=== PATIENT | male | born 1990 | race Caucasian/White ===

== ENCOUNTER 2016-03-17 09:11 | Emergency (ER) | payer OTHER ==
[~2016-03-17] VITALS: Ht 190.5 cm; Wt 113.4 kg
[~2016-03-17 09:11] MED LIST: AMOXICILLIN500 M3 PO; BACTRIM DS TAB1 EACH PO; PERCOCET 5-3251 EACH PO; VICODIN 5-3001 EACH PO
[2016-03-17 09:14] VITALS: BP 146/87
--- NOTE | 2016-03-17 09:15 | ED INFLUENZA/URI COMPLAINT ---
History of Present Illness General Chief Complaint: Upper Respiratory Sx/Fever Stated Complaint: URI Source: patient, old records Exam Limitations: no limitations Vital Signs & Intake/Output Vital Signs & Intake/Output Vital Signs Date Time Temp Pulse Resp B/P Pulse O2 O2 Flow FiO2 Ox Delivery Rate 03/17 0950 96 03/17 0914 96.1 107 18 146/87 98 Room Air Allergies Coded Allergies: nut - unspecified (HIVES 03/17/16) Reconcile Medications Albuterol Sulfate (Proair Hfa) 90 MCG HFA.AER.AD 2 PUF INH Q4-6 PRN PRN shortness of breath Methylprednisolone. (Medrol) 4 MG TAB.DS.PK 1 DP PO AD reactive airway 6 on day 1 then reduce by one tablet daily until gone Triage Note: 25 Y/O MALE C/O URI SYMPTOMS SINCE 299. DENIES RECENT COUGH OR FEVERS. C/O FEELING SOB AND HAVING UPPER BACK PAIN. REPORTS GOOD APPETITE/PO INTAKE. Triage Nurses Notes Reviewed? yes Onset: Abrupt Duration: hour(s): (7), constant, waxing and waning Timing: recent history Severity: mild, moderate Severity Numbers: 5 Prior Episodes/Possible Cause: no prior episodes No Modifying Factors: none Associated Symptoms: upper back pain HPI: This is a 25-year-old male with no medical problems presents emergency room complaining of sudden onset dyspnea upon exertion and intermittent dizziness that came on at 3:00 this morning and awoke him from sleep. He states since then the symptoms have improved however states she feels mildly short of breath while at rest. No history of asthma. He does not smoke. Denies any pain with inspiration no chest pain however states that his left upper back has been bothering him since symptoms began. No hemoptysis. No abdominal pain fever or chills and no recent immobility or recent travel no leg pain or swelling. The patient's family history is significant in that his sister had a blood clot in her legs. The patient is currently using anabolic steroids for which he has been on for the past 4 months (YURIY HARO) Past History Travel History Traveled to [place] past [place] day No Medical History Any Pertinent Medical History? 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 No (YURIY HARO) Review of Systems Review of Systems Constitutional: Reports: see HPI. All Other Systems: Reviewed and Negative Comments Review of systems: See HPI, All other systems negative. Constitutional, no chills no fever, no malaise HEENT: No visual changes no sore throat no congestion, no ear pain Cardiovascular: No chest pain , no palpitation , no orthopnea no ankle swelling Skin, no jaundice no rashes, no change in skin Respiratory: dyspnea no cough no sputum no hemoptysis GI: No nausea no vomiting, no diarrhea, no bloating/constipation : No dysuria No hematuria, Muscle skeletal: No joint pain, no back pain, no neck pain, Neurologic: No numbness no headache Psych: No stress Heme/endocrine: No bruising no bleeding Immunology: No lymphadenopathy (YURIY HARO) Physical Exam Physical Exam General Appearance: well developed/nourished, alert, awake Ears, Nose, Throat: normal ENT inspection, moist mucous membrane, hearing grossly normal Comments: Well-developed well-nourished person in no acute distress HEENT: Normal EENT exam; PERRL, EOMI, HEAD is atraumatic. moist mucous membranes. Neck: Supple, no lymphadenopathy, normal range of motion Back: Nontender, no CVA tenderness. Full range of motion Cardiovascular: Regular rate and rhythms no murmurs rubs or gallops, normal JVP Respiratory: Chest nontender.There were no bony deformities, no asymmetry. No respiratory distress. Patient speaking in full complete sentences. Breath sounds clear to auscultation bilaterally: NO W/R/R Abdomen: Soft, nontender nondistended Extremity: No edema, neg homans sign, full range of motion of extremities, normal and equal pulses bilaterally, 5 out of 5 strength noted to bilateral upper and lower extremities Neuro: Alert oriented x3, motor sensory normal. There were no obvious focal neurologic abnormalities. Skin: No appreciable rash on exposed skin, skin is warm and dry. Psych: Mood and affect is normal, memory and judgment is normal. Core Measures Severe Sepsis Present: No Septic Shock Present: No (YURIY HARO) Progress Differential Diagnosis: pe, pericarditis, pleuritis, pna, bronchitis, reactive airway Plan of Care: Orders Procedure Date/time Status TROPONIN LEVEL 03/17 929 Complete D-DIMER 03/17 929 Complete COMPREHENSIVE METABOLIC PANEL 03/17 929 Complete CBC WITHOUT DIFFERENTIAL 03/17 929 Complete EKG 03/17 929 Active Laboratory Tests 03/17/16 0952: Anion Gap 12, Estimated GFR > 60, BUN/Creatinine Ratio 8.3, Glucose 97, Calcium 9.4, Total Bilirubin 1.3, AST 53, ALT 87 H, Alkaline Phosphatase 40, Troponin I < 0.01, Total Protein 7.0, Albumin 4.1, Globulin 2.9, Albumin/Globulin Ratio 1.4 , D-Dimer 464 H, CBC w Diff NO MAN DIFF REQ, RBC 6.17 H, MCV 85.6, MCH 28.0, RDW 16.1 H, MPV 7.9, Gran % 77.2 H, Lymphocytes % 13.2 L, Monocytes % 4.6, Eosinophils % 4.7, Basophils % 0.3, Absolute Granulocytes 9.4 H, Absolute Lymphocytes 1.6, Absolute Monocytes 0.6, Absolute Eosinophils 0.6, Absolute Basophils 0, PUBS MCHC 32.7 L Labs ordered breathing treatment ordered old records reviewed case was discussed with sophie 03/17/2016 10:36:10 AM discussed the patient with all of his lab results and need for CAT scan at this time. He reports no improvement in symptoms with breathing treatment On repeat evaluation discussed the patient's CAT scan results he is feeling improved he is able to around ER. States mild dyspnea only. case and results d/ w dr bernabe. We'll send patient home with albuterol inhaler and Medrol Dosepak. Patient is advised to abstain from further anabolic steroid use. I advised he return anytime sooner if symptoms worsen answered all his questions he feels comfortable plan (YURIY HARO) Diagnostic Imaging: Viewed by Me: Radiology Read. Discussed w/RAD: Radiology Read. Radiology Impression: PATIENT: KRISTYN CORDON PRESENT AGE: 25 PATIENT ACCOUNT NO: [id number] : 88 LOCATION: [facility] ORDERING PHYSICIAN: YURIY SUAREZ SERVICE DATE: 01/06/17-0936 EXAM TYPE: RAD - XRY-PORTABLE CHEST XRAY EXAMINATION: XR PORTABLE CHEST CLINICAL INFORMATION: Dyspnea. Left upper back pain. COMPARISON: None. TECHNIQUE: Portable view of the chest was obtained. FINDINGS: The lungs are well expanded. There is no focal consolidation, edema, or effusion. No pneumothorax. The cardiomediastinal silhouette is within normal limits. No acute osseous abnormality. 3 tiny radiopaque densities overlie the left axilla and periphery of the left hemithorax, likely external to the patient. IMPRESSION: No acute pulmonary findings. DICTATED BY: ANTONI MERCEDES MD DATE/TIME DICTATED:1013 [employer] SALES:ALAN DATE/TIME TRANSCRIBED:03/17/161013 CONFIDENTIAL, DO NOT COPY WITHOUT APPROPRIATE AUTHORIZATION. <Electronically signed in Other Vendor System> SIGNED BY: ANTONI MERCEDES MD 03/17/161017, PATIENT: KRISTYN CORDON PRESENT AGE: 25 PATIENT ACCOUNT NO: [id number] : 88 LOCATION: [facility] ORDERING PHYSICIAN: YURIY SUAREZ SERVICE DATE: 03/17/16 EXAM TYPE: CAT - CTA CHEST- PULMONARY EMBOLISM EXAMINATION: CT ANGIOGRAM OF THE CHEST WITH AND WITHOUT CONTRAST (CT PULMONARY ANGIOGRAM FOR PE) CLINICAL INFORMATION: Reason for Study:
Presumptive Dx: R/O PE
Signs Symptoms: DYSPNEA L UPPER BACK PAIN
COMPARISON: No pertinent prior studies are available for comparison. TECHNIQUE: Prior to contrast administration, noncontrast localization images were obtained. Subsequently, multidetector volumetric imaging was performed from the thoracic inlet to below the diaphragms following the administration of 100 mL Optiray 350 intravenous contrast. No contrast reaction reported Sagittal, coronal, and MIP oblique sagittal reformatted images were obtained on the CT workstation, uploaded to PACS, and reviewed. Total exam dose-length product 655 mGy-cm FINDINGS: QUALITY OF STUDY/CONTRAST BOLUS: Satisfactory. PULMONARY ARTERIES: No central or segmental pulmonary emboli. THORACIC AORTA: No aneurysm or dissection. LUNG: No focal consolidation, nodules or masses. PLEURA: No pleural effusion or pneumothorax. MEDIASTINUM: Normal heart size. No pericardial effusion. No hilar or mediastinal lymphadenopathy. No evidence of septal bowing or right heart strain. CHEST WALL/AXILLA: No axillary or internal mammary lymphadenopathy. OSSEOUS STRUCTURES: No acute or suspicious osseous abnormality. UPPER ABDOMEN: Unremarkable. No reflux of contrast into the hepatic veins to suggest elevated right heart pressures. IMPRESSION: Normal examination. VTE: Negative. DICTATED BY: MEL MORFIN MD DATE/TIME DICTATED:03/17/161119 [employer] SALES:ALAN DATE/TIME TRANSCRIBED:03/17/161119 CONFIDENTIAL, DO NOT COPY WITHOUT APPROPRIATE AUTHORIZATION. <Electronically signed in Other Vendor System> SIGNED BY: MEL MORFIN MD 03/17/16 1138 Initial ED EKG: normal sinus at 90, nonspecific ST segment changes and normal axis (YURIY HAOR) Departure Departure Time of Disposition: 1150 Disposition: HOME OR SELF CARE Condition: Stable Clinical Impression Primary Impression: Reactive airway disease Referrals: PATIENT HAS NO PRIMARY CARE DR (PCP/Family) Additional Instructions: Medrol Dosepak and albuterol inhaler as discussed. These prescriptions were sent to your pharmacy. Return to the emergency room immediately if he develop worsening in her symptoms or any other concerns Departure Forms: Customer Survey General Discharge Information Prescriptions: Current Visit Scripts Methylprednisolone. (Medrol) 1 DP PO AD #1 DP 6 on day 1 then reduce by one tablet daily until gone Albuterol Sulfate (Proair Hfa) 2 PUF INH Q4-6 PRN PRN shortness of breath #1 INHAL (YURIY HARO) PA/DRUM SANDER Co-Sign Statement Statement: ED Attending supervision documentation- [] I saw and evaluated the patient. I have also reviewed all the pertinent lab results and diagnostic results. I agree with the findings and the plan of care as documented in the PA's/DRUM SANDER's documentation. [X] I have reviewed the ED Record and agree with the PA's/DRUM SANDER's documentation. [] Additions or exceptions (if any) to the PAs/DRUM SANDER's note and plan are summarized below: [] (CARLITOS BERNABE DO) ED Attending Observation Initial Observation Note: I have seen and personally examined KRISTYN CORDON on 03/17/16 at 1035. I agree with the current emergency department documentation. The disposition (admission or discharge) is uncertain at this time, he needs a period of observation for the following reason(s): The ED Nurse caring for this patient has been personally informed as to what the patient is being observed for. (BEKAH SUAREZ,YURIY)
[2016-03-17 10:09] LABS: ABSOLUTE BASOPHIL COUNT 0 /CUMM (0.0-0.2); ABSOLUTE EOSINOPHIL COUNT 0.6 /CUMM (0.0-0.7); ABSOLUTE GRANULOCYTE CT 9.4 /CUMM (1.4-6.5); ABSOLUTE LYMPH COUNT 1.6 /CUMM (1.2-3.4); ABSOLUTE MONOCYTE COUNT 0.6 /CUMM (0.10-0.60); BASOPHIL % 0.3 % (0.0-2.0); EOSINOPHIL % 4.7 % (0-5); GRANULOCYTE % 77.2 % (42.2-75.2); HEMATOCRIT 52.8 % (42-52); MEAN CORPUSCULAR HGB CONC 32.7 G/DL (33.0-37.0); MEAN CORPUSCULAR VOLUME 85.6 FL (80.0-94.0); MEAN PLATELET VOLUME 7.9 FL (7.4-10.4); PLATELET COUNT 368 /CUMM (130-400); RBC DISTRIBUTION WIDTH 16.1 % (11.5-14.5); RED BLOOD CELL CT 6.17 /CUMM (4.70-6.10); WHITE BLOOD CELL COUNT 12.1 /CUMM (4.8-10.8)
--- NOTE | 2016-03-17 10:18 | RADIOLOGY REPORT ---
EXAMINATION: XR PORTABLE CHEST CLINICAL INFORMATION: Dyspnea. Left upper back pain. COMPARISON: None. TECHNIQUE: Portable view of the chest was obtained. FINDINGS: The lungs are well expanded. There is no focal consolidation, edema, or effusion. No pneumothorax. The cardiomediastinal silhouette is within normal limits. No acute osseous abnormality. 3 tiny radiopaque densities overlie the left axilla and periphery of the left hemithorax, likely external to the patient. IMPRESSION: No acute pulmonary findings.
--- NOTE | 2016-03-17 11:38 | CT SCAN REPORT ---
EXAMINATION: CT ANGIOGRAM OF THE CHEST WITH AND WITHOUT CONTRAST (CT PULMONARY ANGIOGRAM FOR PE) CLINICAL INFORMATION: Reason for Study:
Presumptive Dx: R/O PE
Signs Symptoms: DYSPNEA L UPPER BACK PAIN
COMPARISON: No pertinent prior studies are available for comparison. TECHNIQUE: Prior to contrast administration, noncontrast localization images were obtained. Subsequently, multidetector volumetric imaging was performed from the thoracic inlet to below the diaphragms following the administration of 100 mL Optiray 350 intravenous contrast. No contrast reaction reported Sagittal, coronal, and MIP oblique sagittal reformatted images were obtained on the CT workstation, uploaded to PACS, and reviewed. Total exam dose-length product 655 mGy-cm FINDINGS: QUALITY OF STUDY/CONTRAST BOLUS: Satisfactory. PULMONARY ARTERIES: No central or segmental pulmonary emboli. THORACIC AORTA: No aneurysm or dissection. LUNG: No focal consolidation, nodules or masses. PLEURA: No pleural effusion or pneumothorax. MEDIASTINUM: Normal heart size. No pericardial effusion. No hilar or mediastinal lymphadenopathy. No evidence of septal bowing or right heart strain. CHEST WALL/AXILLA: No axillary or internal mammary lymphadenopathy. OSSEOUS STRUCTURES: No acute or suspicious osseous abnormality. UPPER ABDOMEN: Unremarkable. No reflux of contrast into the hepatic veins to suggest elevated right heart pressures. IMPRESSION: Normal examination. VTE: Negative.
[2016-03-17] MEDS ORDERED: PROAIR HFA8.5 GM INH (11:52)
[2016-03-17] MEDS ORDERED: MEDROL4 M2 PO (11:52)
== END 2016-03-17 11:55 ==
LOC: ERH 09:11
PROVIDERS: Physician Assistant Medical
DX: J45.909 Unspecified asthma, uncomplicated (principal); Z72.0 Tobacco use; R06.02 Shortness of breath
CPT/HCPCS: 1263; 93005; 93010

== ENCOUNTER 2016-06-19 15:34 | Emergency (ER) | payer OTHER ==
[~2016-06-19] VITALS: Ht 190.5 cm; Wt 111.1 kg
[~2016-06-19 15:34] MED LIST changes: +MEDROL4 M2 PO; +PROAIR HFA8.5 GM INH
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
[2016-06-19] MEDS ORDERED: DEXTROAMP-AMPHE20 MG PO (17:22)
[2016-06-19 17:29] LABS: ABSOLUTE BASOPHIL COUNT 0 /CUMM (0.0-0.2); ABSOLUTE EOSINOPHIL COUNT 0.4 /CUMM (0.0-0.7); ABSOLUTE GRANULOCYTE CT 5.8 /CUMM (1.4-6.5); ABSOLUTE LYMPH COUNT 1.7 /CUMM (1.2-3.4); ABSOLUTE MONOCYTE COUNT 0.4 /CUMM (0.10-0.60); BASOPHIL % 0.4 % (0.0-2.0); EOSINOPHIL % 4.6 % (0-5); HEMATOCRIT 48.8 % (42-52); MEAN CORPUSCULAR HGB 27.4 PG (27.0-31.0); MEAN CORPUSCULAR HGB CONC 32.7 G/DL (33.0-37.0); MEAN CORPUSCULAR VOLUME 83.8 FL (80.0-94.0); MEAN PLATELET VOLUME 7.9 FL (7.4-10.4); PLATELET COUNT 305 /CUMM (130-400); RBC DISTRIBUTION WIDTH 14.3 % (11.5-14.5); RED BLOOD CELL CT 5.82 /CUMM (4.70-6.10); WHITE BLOOD CELL COUNT 8.3 /CUMM (4.8-10.8)
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
[2016-06-20 11:14] VITALS: BP 130/70
--- NOTE | 2016-06-20 14:14 | ED PSY CRISIS COLLATERAL NOTE ---
Collateral Note Collateral Note Family/Inform/Shawn Contacts: Bienvenido called pt to follow-up with pt, but he did not answer. A voice message was left. Bienvenido called pt's sister Gertrude Polo to follow-up with her since pt was not reached. She informed that she is at pt's home with him, and they heard the phone ring, but did not pick it up in time, but then her phone rang. She explained that pt seems to be ding fine and that they are trying to reach pt's doctor to see if he can be started on a mood stabilizer until his appointment at [facility]. She agreed to call or send pt to the ED if any concerns arise.
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
== END 2016-06-20 11:19 ==
LOC: ERH 15:34
PROVIDERS: Physician Assistant
DX: F31.9 Bipolar disorder, unspecified (principal); F41.9 Anxiety disorder, unspecified; R45.851 Suicidal ideations
CPT/HCPCS: 80307; 93005; 93010; G0463; G0480; J0515; J1630

== ENCOUNTER 2016-06-21 13:07 | Emergency (ER) | payer OTHER ==
[~2016-06-21 13:07] MED LIST changes: +DEXTROAMP-AMPHE20 MG PO
== END 2016-06-21 13:40 | disposition admitted as inpatient to this hospital (09) ==
LOC: ERH 13:07
DX: F41.9 Anxiety disorder, unspecified (principal)

== ENCOUNTER 2016-06-21 14:07 | Inpatient (IN) | payer OTHER ==
[~2016-06-21] VITALS: Ht 188 cm; Wt 104.0 kg
--- NOTE | 2016-06-21 14:14 | NUR ---
PT WISHES TO SPEAK WITH A DOCTOR TO RX MEDICINE FOR HIS ANXIETY. PT STATES HE HAS NEVER BEEN ON ANXIETY MEDS. PT DENIES SI/HI. STATES HE WAS SEEN HERE 3 DAYS AGO AND HIS SISTER TOLD HIM TO TELL THE PROVIDERS HE WAS SI BECAUSE THAT SHE SAID TO HIM THAT IT WOULD BE THE ONLY WAY HE WOULD BE SEEN WAS IF HE SAID THAT
--- NOTE | 2016-06-21 14:15 | NUR ---
PT STATES HE HAS AN APPOINTMENT LATER TODAY WITH A THERAPIST
--- NOTE | 2016-06-21 15:10 | NUR ---
REPORT RECIEVED FROM NAA PEMBERTON. ASSUMED CARE OF PT
--- NOTE | 2016-06-21 15:20 | NUR ---
PT WANDED BY SECURITY. DR CAMPOS IN TO SEE PT.
--- NOTE | 2016-06-21 15:36 | ED PSYCHIATRIC COMPLAINT ---
History of Present Illness General Chief Complaint: Psychiatric Related Complaint Stated Complaint: PSY EVAL Source: patient, family, old records Exam Limitations: no limitations Vital Signs & Intake/Output Vital Signs & Intake/Output Vital Signs Date Time Temp Pulse Resp B/P Pulse O2 O2 Flow FiO2 Ox Delivery Rate 06/21 1837 96.2 113 15 166/81 98 Room Air Room Air 06/21 1558 Room Air 06/21 1413 97.7 96 20 120/79 98 Room Air Allergies Coded Allergies: No Known Allergies (06/19/16) Reconcile Medications Dextroamphetamine/Amphetamine (Dextroamp-Amphetamin 20 MG Tab) 20 MG TABLET 1 TAB PO BID ADD (Reported) Triage Note: PT WISHES TO SPEAK WITH A DOCTOR TO RX MEDICINE FOR HIS ANXIETY. PT STATES HE HAS NEVER BEEN ON ANXIETY MEDS. PT DENIES SI/HI. STATES HE WAS SEEN HERE 3 DAYS AGO AND HIS SISTER TOLD HIM TO TELL THE PROVIDERS HE WAS SI BECAUSE THAT SHE SAID TO HIM THAT IT WOULD BE THE ONLY WAY HE WOULD BE SEEN WAS IF HE SAID THAT Triage Nurses Notes Reviewed? yes Onset: several months Duration: week(s):, constant, continues in ED, getting worse Timing: recent history Severity: moderate Associated Symptoms: anxiety, impaired concentration, insomnia HPI: Several months prior to admission patient complains of increasing anxiety or panic attacks especially with sleeping with insomnia anorexia. He was seen 2 days ago with suicidal homicidal ideation threatening behavior towards family increasing rage. Currently denies fever chills nausea vomiting diarrhea abdominal pain chest pain shortness breath headache dysuria rash bleeding suicidal or homicidal ideation hallucination. (SHARAD AYERS MD) Past History Travel History Traveled to [place] past 21 day No Medical History Any Pertinent Medical History? see below for history Neurological: NONE EENT: NONE Cardiovascular: NONE Respiratory: NONE Gastrointestinal: NONE Hepatic: NONE Renal: NONE Musculoskeletal: CELLULITIS Psychiatric: anxiety Endocrine: NONE Blood Disorders: NONE Cancer(s): NONE CIGARETTE TESTER/Reproductive: NONE Surgical History Surgical History: non-contributory Psychosocial History Who do you live with Mother What is your primary language Turkmen Tobacco Use: Current Daily Use Daily Tobacco Use Amount/Type: Smokeless tobacco daily ETOH Use: denies use Illicit Drug Use: denies illicit drug use Family History Hx Contributory? No (SHARAD AYERS MD) Review of Systems Review of Systems Constitutional: Reports: no symptoms. EENTM: Reports: no symptoms. Respiratory: Reports: no symptoms. Cardiovascular: Reports: no symptoms. GI: Reports: no symptoms. Genitourinary: Reports: no symptoms. Musculoskeletal: Reports: no symptoms. Skin: Reports: no symptoms. Neurological/Psychological: Reports: see HPI, anxiety, emotional problems. Hematologic/Endocrine: Reports: no symptoms. Immunologic/Allergic: Reports: no symptoms. All Other Systems: Reviewed and Negative (SHARAD AYERS MD) Physical Exam Physical Exam General Appearance: well developed/nourished, mild distress Head: atraumatic Eyes: Bilateral: PERRL, EOMI. Ears, Nose, Throat: normal pharynx, normal ENT inspection, hearing grossly normal Neck: normal inspection, supple Respiratory: normal breath sounds Cardiovascular: regular rate/rhythm Gastrointestinal: soft, non-tender Extremities: normal range of motion Neurological/Psychiatric: no motor/sensory deficits, awake, alert, anxious, car retarder operator II-XII nml as tested, oriented x 3 Appearance/Memory/Insight: denies illness Behavoir/Eye Contact/Speech: cooperative, normal speech Thoughts/Hallucinations: no apparent hallucination Skin: intact, normal color, warm/dry SAD PERSONS Done? patient not suicidal (SHARAD AYERS MD) Progress Differential Diagnosis: drug intoxication, drug overdose, drug withdrawal, electrolyte abnormality, hypoglycemia Plan of Care: Orders Procedure Date/time Status Regular Diet 06/22 B Active TSH REFLEX 06/22 0600 Active Regular Diet 06/21 D Complete Admit to inpatient psych 06/21 1841 Active Patient Data - inpatient psych 06/21 1716 Active Admit to inpatient psych 06/21 1716 Active Intake & Output 06/21 1557 Active Continuous Observation Monitor 06/21 1432 Active URINE DRUG SCREEN FOR ER ONLY 06/21 1432 Active ETHANOL 06/21 1432 Complete COMPREHENSIVE METABOLIC PANEL 06/21 1432 Complete CBC WITHOUT DIFFERENTIAL 06/21 1432 Complete ED CRISIS PSYCH CONSULT 06/21 1432 Active Vital Signs 06/21 UNK Active Nursing Misc 06/21 UNK Active Alternative Nursing Therapy 06/21 UNK Active Activity/Ambulation 06/21 UNK Active Laboratory Tests 06/21/16 1820: Methadone Screen Pending, Barbiturate Screen Pending, Ur Phencyclidine Scrn Pending, Amphetamines Screen Pending, U Benzodiazepines Scrn Pending, Urine Cocaine Screen Pending, Urine Cannabis Screen Pending 06/21/16 1740: Anion Gap 13, Estimated GFR > 60, BUN/Creatinine Ratio 10.0, Glucose 90, Calcium 10.1, Total Bilirubin 1.0, AST 21, ALT 39, Alkaline Phosphatase 47, Total Protein 7.5, Albumin 4.7, Globulin 2.8, Albumin/Globulin Ratio 1.7, CBC w Diff NO MAN DIFF REQ, RBC 5.87, MCV 83.3, MCH 28.6, RDW 14.2, MPV 7.8, Gran % 66.6, Lymphocytes % 20.4 L, Monocytes % 6.4, Eosinophils % 6.3 H, Basophils % 0.3, Absolute Granulocytes 5.9, Absolute Lymphocytes 1.8, Absolute Monocytes 0.6, Absolute Eosinophils 0.6, Absolute Basophils 0, PUBS MCHC 34.3, Serum Alcohol < 10.0 Hand-Off Endorsed To: CARLITOS DUPONT MD Endorsed Time: 1535 Pending: consult Comments: Psychiatry to evaluate patient emergency department to determine if PEC needs to be continued. (SHARAD AYERS MD) Comments: 06/21/2016 5:23:51 PM according to our farmworker fryer farm, Peter has been convinced by his certification officer to stay for a voluntary admission (otherwise face nursing home time). Ativan ordered for the patient's complaint of anxiety. (CARLITOS DUPONT MD) Departure Departure Disposition: STILL A PATIENT Condition: Stable Clinical Impression Primary Impression: Generalized anxiety disorder Secondary Impressions: Impulse control disorder in adult Referrals: PATIENT HAS NO PRIMARY CARE DR (PCP/Family) Departure Forms: Customer Survey General Discharge Information (SHARAD AYERS MD) Psych Admission Note Psychiatric Admission: I have seen and evaluated PETER CORDON. I have also reviewed all the pertinent lab results and diagnostic results. PETER CORDON will be admitted to our inpatient Psychiatric unit for treatment and care. (CARLITOS DUPONT MD)
--- NOTE | 2016-06-21 15:56 | NUR ---
PLAN TO DISCHARGE PT MADE BY DR CAMPOS AFTER A FEW STIPULATIONS MADE. PT RESTING QUIETLY ON STRETCHER. GIVEN WATER.
--- NOTE | 2016-06-21 16:36 | NUR ---
PT SITTING ON STOOL BY SINK USING CELL PHONE WHICH IS PLUGGED INTO OUTLET BY SINK. PT REFUSED OFFER OF FOOD. COOPERATIVE
--- NOTE | 2016-06-21 17:34 | NUR ---
PT MEDICATED ORDERED
[2016-06-21 17:53] LABS: ABSOLUTE BASOPHIL COUNT 0 /CUMM (0.0-0.2); ABSOLUTE EOSINOPHIL COUNT 0.6 /CUMM (0.0-0.7); ABSOLUTE GRANULOCYTE CT 5.9 /CUMM (1.4-6.5); ABSOLUTE LYMPH COUNT 1.8 /CUMM (1.2-3.4); ABSOLUTE MONOCYTE COUNT 0.6 /CUMM (0.10-0.60); BASOPHIL % 0.3 % (0.0-2.0); EOSINOPHIL % 6.3 % (0-5); GRANULOCYTE % 66.6 % (42.2-75.2); HEMATOCRIT 48.9 % (42-52); MEAN CORPUSCULAR HGB 28.6 PG (27.0-31.0); MEAN CORPUSCULAR HGB CONC 34.3 G/DL (33.0-37.0); MEAN CORPUSCULAR VOLUME 83.3 FL (80.0-94.0); MEAN PLATELET VOLUME 7.8 FL (7.4-10.4); PLATELET COUNT 266 /CUMM (130-400); RBC DISTRIBUTION WIDTH 14.2 % (11.5-14.5); RED BLOOD CELL CT 5.87 /CUMM (4.70-6.10); WHITE BLOOD CELL COUNT 8.8 /CUMM (4.8-10.8)
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
--- NOTE | 2016-06-21 18:10 | NUR ---
PT ASKING IF HIS SISTER COULD COME BACK AND VISIT. PT INFORMED THAT SHE IS NOT ALLOWED BACK SINCE DR. CEDEÑO SUGGESTED THEY ARE NOT ALLOWED TO BE VISITING RIGHT NOW SINCE PT IS EASILY AGITATED BY HER PRESENCE. PT BECAME AGITATED AND DEMANDING TO SPEAK TO CRISIS.
--- NOTE | 2016-06-21 18:38 | NUR ---
UNABLE TO GIVE REPORT TO CPS D/T A NEW ADMISSION TO FLOOR, RN WILL CALL BACK FOR REPORT.
--- NOTE | 2016-06-21 18:45 | NUR ---
PT'S SISTER TOOK ALL BELONGINGS AND VALUABLES HOME WITH HER. PT HAS NOT MEDS, CLOTHING OR VALUABLES. PT'S SISTER BROUGHT PATIENT BOOKS TO READ, BOOKS SEARCHED BY SECURITY BEFORE ALLOWING PT TO HAVE THEM.
--- NOTE | 2016-06-21 19:00 | NUR ---
NURSING STAFF WILL CALL BACK IN 30 MINUTES FOR REPORT.
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
--- NOTE | 2016-06-21 19:24 | NUR ---
RECIEVED REPORT FROM NILAY GIBSON. ASSUMED CARE OF PT. PT CALM AND COOPERATIVE RESTING ON STRETCHER AT THIS TIME. SITTER IN PLACE. AWAITING CALL FROM CPS FOR REPORT.
--- NOTE | 2016-06-21 19:51 | NUR ---
REPORT GIVEN TO CPS
[2016-06-21 20:17] VITALS: BP 138/80
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
[2016-06-22 08:04] VITALS: BP 128/76
--- NOTE | 2016-06-22 11:22 | CPS MD/APRN INITIAL ASSE PSYCH ---
Psychiatric Admission Tire Repairman's Note Reviewed: Yes Patient Seen and Examined: Yes Identifying Information: Patient is a 25-year old single male who presented to ED on 06/21/16 after a verbal altercation with his sister. Patient was also previously evaluated in the ED on 06/19/16 and 06/20/16 resulting in him making threats to harm himself and his sister. Chief Complaint: "I was really angry so I came here. I got into a fight with my sister." Reaction to Hospitalization: "This seems like a good place to be. I want help for my anger." History of Present Illness Onset of Illness: Patient reported being released from skilled nursing for approximately two and a half years. He had been incarcerated after committing an armed robbery which was fueled by his addiction to crack/cocaine and need to finance addiction. He is now on probation for 8 years. He reported having a conflicted relationship with his sister who he also claims is very supportive. He has become more angry over the last couple weeks and has been more argumentative with his sister. Since, he reports sporadically smoking crack/cocaine and drinking beer. Reported an increase in impulsive behaviors (primarily spending sprees), however he would not elaborate further beyond that. Also reported a notable increase in anger. Denied recent physical violence. He was previously evaluated in ED on 06/19 and after making threats to harm himself and his sister. Circumstances Leading to Admission: substance use increased anger/agitation impulsive behaviors discord with sister enmeshed family dynamics fear of returning to skilled nursing Problem(s) Justifying Need for Admission: impulsive/agiatated behaviors recent suicidal/homicidal threats Past Psychiatric History Past Diagnosis(es)- if any: PTSD Unspecified anxiety disorder Past Precipitating Factors- if any: History legal issues On parole since last 2.5 years Break-up with girlfriend History substance use Treatment nonadherence - Include inpatient and outpatient treatment Treatment History: Patient denied a history of prior inpatient psychiatric hospitalizations. Of note, Crisis Eval stated patient had been admitted to [facility] inpatient psychiatry as a teenager. Prior [facility] Out[facility] Denied prior treatment at Care Current outpatient tx with Randy Ross LCSW ([place], [place]). Recently sought out psychiatrist Dr. Mendy Norris ([place], [place]) who he was seen by once. History of Suicide Attempts or Gestures Denied. Substance Abuse History: Cocaine/Crack: STEFFI: 06/18/16. Reported no prior use since release from skilled nursing. Alcohol: STEFFI: 06/18/16 of "a few beers." Reported infrequent, sporadic use. Denied use of other illicits. Tobacco: daily use of smokeless tobacco. 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 Pt reported prescription was provided by psychiatrist Dr. Mendy Norris. Per medication claim history prescription was prescribed by Reena Cosme APRN and filled by patient on 06/19/16. Prior medication trials (during incarceration): Depakote [place] ? Zoloft - Include any medical condition(s) that may - impact the patient's recovery/remission Past Medical History: Denied Past History Medical History Neurological: NONE EENT: NONE Cardiovascular: NONE Respiratory: NONE Gastrointestinal: NONE Hepatic: NONE Renal: NONE Musculoskeletal: CELLULITIS Psychiatric: anxiety Endocrine: NONE Blood Disorders: NONE Cancer(s): NONE OFFAL SEPARATOR/Reproductive: NONE History of MRSA: No History of VRE: No History of CDIFF: No Isolation History: Standard Influenza Vaccine: 01/20/11 Surgical History Surgical History: none Psychiatric Family/Social Hx Family History Psychiatric Illness: Denied a known family history of psychiatric disorders Substance Use: Denied a known family history of substance abuse Suicides: Denied a known history Social History Living Situation: Lives with parents in [place]. 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 Legal: Prior incarceration for armed robbery and drug related charges. Released from snf about 2.5 years ago. On probation for next 8 years. Healthly Behaviors Screening Tobacco Screening Tobacco Use from ED Docu: Current Daily Use Daily Tobacco Use Amount/Type: Smokeless tobacco daily - If tobacco counseling indicated - the following topics are required. - #1 Recognizing dangerous situations. - #2 Coping Skills. - #3 Basic information about quitting. Status of Tobacco Cessation Counseling: #1, #2 AND #3 Completed Cessation Med Status: Nicotine Gum Ordered Alcohol Screening - ETOH screen POS if BAL >=80 or Audit-C>= M4/F3 Audit-C Score from Diag Assess: 2 Blood Alcohol Level: Laboratory Tests 06/21 1740 Toxicology Serum Alcohol (<10 MG/DL) < 10.0 Alcohol Use Screening Results: Neg per Audit C &/or BAL - If ETOH counseling indicated - the following topics are required. - #1 Express concern about the patient's - drinking at unhealthy levels, include informing - of national norms for moderate drinking: - men <= 14 drinks/week, max 4 drinks/occasion - women <= 7 drinks/week, max 3 drinks/occasion - #2 Providing feedback, including linking alcohol to - negative physical effects (liver injury, hypertension) - negative emotional effects (relationship problems and - depression) - negative occupational consequences (reduced work - performance) - #3 Advising the patient to abstain from alcohol or - to drink below national norms for moderate drinking - (as listed above). Status of ETOH Use Counseling: #1, #2 AND #3 Completed. Metabolic Screening - Screen if on a Neuroleptic Medication - Metabolic screening should include: - Blood Pressure, BMI, Glucose or Hgb A1c, & a - Lipid profile from within the past 365 days. Metabolic Screening ([X]) Not Applicable, patient not on a neuroleptic. OR () Patient on a neuroleptic(s) . Enter below results for Glucose or Hemoglobin A1C, and lipid panel if obtained during the last 365 days. BMI: 29.400 Blood Pressure: 128/76 Laboratory Results (If applicable): n/a Exam and Plan Mental Status Examination Ambulation Status: steady and independent Appearance: 25 y/o CM who appears stated age. Dressed in blue paper scrubs; mustache and vizcarra; tatoos on right arm and left hand. Attitude towards examiner: calm, cooperative Psychomotor activity: No psychomotor agitation or retardation Behavior: Calm; good physical and behavioral control. Quality of speech: normal in rate, tone and volume Affect: calm and constricted Mood: "Fine" 2/10 depression 4/10 anxiety denied hopelessness denied helplessness denied worthlessness denied guilt Suicidal Ideation: denied Homicidal Ideation: denied Hallucinations: denied avh Paranoid/Delusional Material: none evident Difficulties with thought organization: none evident Insight: fair Judgment: fair Orientation: x 4 Cognition: grossly intact Memory Function: grossly intact Estimate of intellectual functioning: average Assets/Strengths Patient Identified Assets/Strengths: resourceful, supportive family, stable housing, motivated for treatment. 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 Patient demonstrated fair insight on encounter, seemed motivated to seek help for poor impulse control/aggression. Recent behavior may have been precipitated by crack/ cocaine use and/or prescribed stimulant medication. Symptoms based on history appear consistent with bipolar disorder. Reviewed the risk/benefit/se profiles of Depakote with patient including required blood monitoring for drug level, CBC and LFTs. Patient in favor of remaining of Depakote as he had prior good efficacy on medication during incarceration. Patient agreed to continue medication. - Include all active medical diagnosis that require tx DSM 5 Diagnosis(es): Unspecified bipolar disorder R/O PTSD R/O Substance-induced mood disorder - Initial Tx Plan for Active Psych & Medical Conditions Treatment Plan: 1. Monitor patient on unit for safety, mood and aggression. 2. Continue VPA 500mg BID. VPA level scheduled on 06/25/16 at 0600. Will increase to therapeutic level. 3. Will consider adding SSRI if acute symptoms of depression or anxiety recur. 4. Obtain collateral from family/officer captain. Schedule family meeting. 5. Once symptoms are clinically stable refer to IOP level of care at [facility]. 6. H&P per corduroy cutting supervisor team. - Factors that would help patient function - in a less restrictive setting. Factors: Mood stabilization Sobriety Psychosocial support Milieu therapy Medication adherence Referral to IOP
--- NOTE | 2016-06-22 11:56 | SOCIAL WORKER PROG NOTE PSYCH ---
Social Work Progress Note Progress Note Patient seen individually, and in meeting with his patole officer, Odin Schaffer , (cell-[phone]); Ivory Chappell, treating CHEMICAL WEIGHER, and medical student, Radha; as well as myself and ptient. Meeting was very focused and productive, and patient appeared to be forthcoming, and he showed some insight into his behavior. Patient's parole offocer, Odin was extremely helpful and knows patient and his family well. He is also very supportive of patient and wants him to do well. Mica Miner emphasized that he could speak freely about situation, including recent drug use; and indicated that he did not wish to violate patient as long as he goes along with treatment and stays woth meds. He also stated that patient recieved a longer than usual probation period as it was a violent crime, fueled by crack use and need to finance this Patient was fearful about coming into hospital as he had had bad experiences in skilled nursing, and he also stated that the E D atmosphere made him more apprehensive. Patient has been working enough to get by financially, but recently had to get new truck in order to get to jobs as he was not working for a while due to inability to get to jobs, Patient had done fairly well without meds after being released from residential about 2.5 years ago. Patient stated that he knew he was headed for problems and actually sought out a psychiatrist whom he has seen one time. Patient admits to impulsivity, and stated he was spending extra money. Patient has supportive family, although "they are very enmeshed" per driver's license reviewing officer. Ivory stated that she would be using Depakote which patient stated that he was able to tolerate. He had done pretty well on Depakote in residential, and then did even better when another medication was added. Patient dos not remember what medication was added but he thinks it might have been Zoloft. Patient is very agreeable to IOP and follow up through [facility]. Patient very happy to be here at present, and agreed to meet with me later to complete social history. training and development officer made his interest clear and would assist if needed, or participate in any way.
[2016-06-22 12:34] VITALS: BP 145/77
--- NOTE | 2016-06-22 14:03 | NUR ---
PT IS COMPLIANT AND COOPERATIVE. MOOD IS STABLE WITH A FULL RANGE OF AFFECT. PT DENIES SI AT THIS TIME, NO COMPLAINTS OFFERED. PT TENDS TO BE WITHDRAWN IN ROOM IN BETWEEN GROUPS. PT IS INTERACTING WITH PEERS AND STAFF WHEN PRESENT ON UNIT. PT HAS ATTENDED SOME GROUPS. VITALS ARE STABLE, APPETITE IS GOOD.
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
[2016-06-22 16:47] VITALS: BP 144/62
[2016-06-22 20:08] VITALS: BP 142/69
--- NOTE | 2016-06-22 21:09 | NUR ---
PT IS VISIBLE ON UNIT, VERY SOCIAL WITH PEERS AND STAFF. HAD A VISITOR THROUGHOUT THE EVENING. VERY COOPERATIVE AND COMPLIANT. NO COMPLAINTS OR SI REPORTED. PT HAS A STABLE MOOD AND FULL RANGE AFFECT.
--- NOTE | 2016-06-23 04:59 | NUR ---
PT APPEARED TO SLEEP WELL.
[2016-06-23 07:49] VITALS: BP 130/64
--- NOTE | 2016-06-23 10:54 | NUR ---
PT IS STABLE WITH CONSTRICTED AFFECT. VISIBLE WITHIN THE COMMUNITY AND INTERACTING WITH PEERS/STAFF. PT HAS BEEN ATTENDING GROUPS ALL MORNING AND STATED THAT HIS GOAL FOR THE DAY WAS TO "ATTEND GROUPS AND BE POSITIVE". VS ARE STABLE AND DENIES ANY SI/HI TO THIS MHW.
[2016-06-23 12:42] VITALS: BP 114/57
--- NOTE | 2016-06-23 13:41 | CP SOUTH PROGRESS NOTE PSYCH ---
Psych (Inpt) Progress Note Progress Note Include the following elements, when applicable: Involvement in the active treatment of the patient with behavioral observations of the patient and the patient's response to the treatment. Review of the ongoing treatment process in the context of the treatment plan. Indication of how multi-disciplinary staff members are carrying out the treatment plan. Plans for future interventions and recommendations for revision of the treatment plan. Liaison with other physicians/providers. Progress Note: [I discussed this patient's progress to date, current mental status, treatment process in the context of the treatment plan, and discharge planning with staff/ team in the daily morning inpatient team meeting. I also met with the patient myself in individual session.] S: "I'm feeling somewhat down." O: Current Medications Sig/Leatha Start time Last Medication Dose Route Stop Time Status Admin Benztropine Mesylate 1 MG Q6P PRN 06/21 2215 AC PO Benztropine Mesylate 1 MG Q6P PRN 06/21 2215 DC IM Bupropion HCl 150 MG 0800 06/24 0800 AC PO Divalproex Sodium 500 MG BID 06/21 2200 AC 06/23 PO 1046 Gabapentin 300 MG Q6P PRN 06/21 2115 AC 06/22 PO 1619 Haloperidol 5 MG Q6P PRN 06/21 2215 AC PO Haloperidol 5 MG Q6P PRN 06/21 2215 DC IM Nicotine 21 MG DAILY 06/21 210 AC 06/22 TOP 1613 Trazodone HCl 50 MG AT BEDTIME NEED.. 06/21 2114 AC 06/22 PO 2151 Vital Signs Date Time Temp Pulse Resp B/P Pulse O2 O2 Flow FiO2 Ox Delivery Rate 06/23 1242 81 114/57 06/23 0749 95.7 85 130/64 06/23 2007 96.3 82 142/69 06/22 1647 88 144/62 A: Chart, progress notes, labs, VS, and medication list were reviewed. Vital signs within normal limits. No new lab results today. Met with patient 1:1 this afternoon. He expressed feeling "tired" and "foggy" from restarted Depakote 500mg BID. He additionally reported feeling depressed. He reported depression of 5/10 (10 being the worst), mostly feeling unmotivated, isolated, with anhedonia. He reported mild anxiety, but mostly at night; he could not elaborate on possible triggers to night time anxiety. Focus of session was surrounding antidepressants. Patient was focused on starting one; he reported he made a mistake yesterday when talking about past medications. Reported a past trial on Zoloft which was not efficacious and rather made him feel "really down, almost suicidal." He added that he experienced other SEs on this medication, but could not recall them in detail. He reported a failed trial on Prozac during teenage years d/t SEs. Could not recall if he previously trialed Lexapro, Celexa, Paxil or Luvox. He seemed averse to trialing further SSRIs given prior trials resulting in SEs. He reported a previous trial of Wellbutrin during incarceration. Believed medication worked well in conjunction to Depakote. He denied symptoms of anxiety , hypomania/hilda, or agitation on this combination. Med education on WBU was provided, including SEs of Wt loss, nausea, headache, agitation, anxiety, and HTN. Patient verbalized understanding of all med education. Was agreeable to start low-dose WBU to target depressive symptoms while remaining on VPA. Will start at 75mg QAM and monitor for SEs of agitation/anxiety. He denied passive/active SI, HI, plans and intent. He denied AVH. Mood was "down." Affect calm, constricted. Showed good behavioral and physical control. No evidece of PI/delusions. Reported stable sleep and appetite. Thought process was organized, linear. Thought content was appropriate. Cognition was grossly intact. P: 1. Continue monitoring patient on unit for safety, mood, aggression. 2. Continue VPA 500mg BID for mood stabilization. VPA level scheduled on 06/25/16 at 0600. 3. Start Wellbutrin 75mg QAM for depression, tomorrow. Monitor for increased agitation/anxiety. 4. Dispo planning per primary team.
--- NOTE | 2016-06-23 14:51 | SOCIAL WORKER PROG NOTE PSYCH ---
Social Work Progress Note Progress Note Patient spoken with this morning individually. He has been very cooperative. He is understandably anxious to be discharged, but has been very approriate and cooperative on the unit. housing officer needs to be involved in follow up plan. They have a very healthy relationship, and Mr Karime, P.O., is an support for patient, and wants him to do well. Patient making progress and being social.
[2016-06-23 16:08] VITALS: BP 142/75
--- NOTE | 2016-06-23 16:17 | SOCIAL WORKER TX PLAN PSYCH ---
Treatment Plan - Please Document: - Evidence that there is ongoing collaboration between - the patient and the interdisciplinary team, - including the patient's active participation and - responsibility for engaging in the treatment regimen, - and that the treatment plan is individualized and - relevant to the patient's conditions. - Treatment plan should reflect documentation indicating - that all active therapeutic efforts are included. Strengths/Capabilities: The patient has stable housing and is self employed. He does have insight into his need for treatment and is motivated to attend. Physical Limitations (Interventions): None noted DSM5/PS Stressors/Medical Prob Diagnosis' (DSM 5, Stressors, Medical): Unspecified anxiety d/o (F41.9) PTSD (43.10) recent break-up parole Current GAF: 25 Treatment Team - Responsibilities of members of the treatment team include: - Medication Management- MD or CONTROL ROOM TECHNICIAN - Medication Administration and Monitoring- Nurse - Group Therapy- Occupational Therapist - 1:1 Therapy,Disch Planning,family involvement-Activities Manager
--- NOTE | 2016-06-23 18:44 | History & Physical ---
General Information and HPI MD Statement: I have seen and personally examined KRISTYN CORDON and documented this H&P. The patient is a 25 year old M who presented with a patient stated chief complaint of "I'm really angry, so he came here. I got in a fight with my sister". Source of Information: patient, family Exam Limitations: no limitations History of Present Illness: 25-year-old white male had increased anxiety and panic attacks not sleeping poor appetite increased rage has history of explosive anger and agitation in the past this time comes in for an evaluation and adjustment of medications. Allergies/Medications Allergies: Coded Allergies: No Known Allergies (06/19/16) Home Med list Dextroamphetamine/Amphetamine (Dextroamp-Amphetamin 20 MG Tab) 20 MG TABLET 1 TAB PO BID ADD (Reported) Compliance With Home Meds: UNKNOWN Past History Travel History Traveled to [place] past 21 day No Medical History Neurological: NONE EENT: NONE Cardiovascular: NONE Respiratory: NONE Gastrointestinal: NONE Hepatic: NONE Renal: NONE Musculoskeletal: CELLULITIS Psychiatric: anxiety Endocrine: NONE Blood Disorders: NONE Cancer(s): NONE MAINTENANCE INSPECTOR/Reproductive: NONE History of MRSA: No History of VRE: No History of CDIFF: No Isolation History: Standard Influenza Vaccine: 06/22/16 Surgical History Surgical History: non-contributory Past Family/Social History Psychosocial History Where do you live? 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 Exam & Diagnostic Data Last 24 Hrs of Vital Signs/I&O Vital Signs Date Time Temp Pulse Resp B/P Pulse O2 O2 Flow FiO2 Ox Delivery Rate 06/23 1608 90 142/75 06/23 1242 81 114/57 06/23 0749 95.7 85 130/64 06/23 2007 96.3 82 142/69 Physical Exam General Appearance Alert, Oriented X3, Cooperative, No Acute Distress Skin No Rashes, No Breakdown HEENT PERRLA, EOMI, Mucous Membr. moist/pink Neck Supple, No JVD, No thryomegaly Lymphatic Axillary nl, Cervical nl Cardiovascular Regular Rate, No Murmurs Lungs Clear to Auscultation, Normal Air Movement Abdomen Normal Bowel Sounds, Soft, No Tenderness, No Hepatospenomegaly, No Masses Neurological Exam Findings: Normal Speech, Strength at 5/5 X4 Ext, Normal Tone, Sensation Intact, Cranial Nerves 3-12 NL, Reflexes 2+ Cranial Nerves II through XII: Intact Extremities No Cyanosis, No Edema, Normal Pulses Vascular Normal Pulses, Pulses Symmetrical Last 24 Hrs of Labs/Luis: Laboratory Tests 06/22/16 0648: TSH &T3 &Free T4 Intrp 1.520 06/21/16 1820: Urine Opiates Screen < 100.00, Methadone Screen < 40, Barbiturate Screen < 60, Ur Phencyclidine Scrn < 6.00, Amphetamines Screen < 100, U Benzodiazepines Scrn < 85, Urine Cocaine Screen 718 H, Urine Cannabis Screen 30.00 06/21/16 1740: Anion Gap 13, Estimated GFR > 60, BUN/Creatinine Ratio 10.0, Glucose 90, Calcium 10.1, Total Bilirubin 1.0, AST 21, ALT 39, Alkaline Phosphatase 47, Total Protein 7.5, Albumin 4.7, Globulin 2.8, Albumin/Globulin Ratio 1.7, CBC w Diff NO MAN DIFF REQ, RBC 5.87, MCV 83.3, MCH 28.6, RDW 14.2, MPV 7.8, Gran % 66.6, Lymphocytes % 20.4 L, Monocytes % 6.4, Eosinophils % 6.3 H, Basophils % 0.3, Absolute Granulocytes 5.9, Absolute Lymphocytes 1.8, Absolute Monocytes 0.6, Absolute Eosinophils 0.6, Absolute Basophils 0, PUBS MCHC 34.3, Serum Alcohol < 10.0 Laboratory Tests 06/22/16 0648: TSH &T3 &Free T4 Intrp 1.520 Assessment/Plan As Ranked By This Provider Problem List: 1. Impulse control disorder in adult 2. Generalized anxiety disorder 3. Bipolar disorder, unspecified Miscellaneous Miscellaneous Documentation Attending Case Discussed With: JESS TAVERAS,ODIN Lewis Primary Care Physician: PATIENT HAS NO PRIMARY CARE DR Patient sees these Specialists Psychiatry Level of Patient Care: [facility] Consults Needed: Consulting Specialty: Psychiatry Consulting Physician: Odin Sommer MD Reason for Consult: bipolar disorder
[2016-06-23 20:01] VITALS: BP 138/79
--- NOTE | 2016-06-23 21:16 | NUR ---
PT IS CALM, COOPERATIVE WITH STAFF AND APEERS, AND COMPLINAT WITH UNIT RULES. PT IS OFTEN IN [place], INTERACTING WELL WITH OTHERS. MOOD IS STABLE, AFFECT APPEARS FULL RANGE, COMMUNICATION IS ORGANIZECD AND APPEARS NORMAL IN ALL RESPECTS, AND APPETITE IS NORMAL. PT DENIES SI AT THIS TIME.
--- NOTE | 2016-06-24 06:22 | NUR ---
PATIENT WAS BRIEFLY AWAKE IN BED X1, OTHERWISE SLEPT ALL NIGHT.
[2016-06-24 07:55] VITALS: BP 124/69
[2016-06-24 12:14] VITALS: BP 137/73
--- NOTE | 2016-06-24 13:24 | NUR ---
PT IS COMPLIANT AND COOPERATIVE WITH UNIT RULES. PT IS OUT IN COMMUNITY INTERACTING WELL WITH STAFF AND PEERS. PT IS ATTENDING GROUPS. PT MOOD IS STABLE WITH A FULL RANGE AFFECT. PT GOAL THIS MORNING WAS TO STAY CALM AND RELAX TODAY. PT DENIES SI THOUGHTS.
--- NOTE | 2016-06-24 14:03 | CP SOUTH PROGRESS NOTE PSYCH ---
Psych (Inpt) Progress Note Progress Note Include the following elements, when applicable: Involvement in the active treatment of the patient with behavioral observations of the patient and the patient's response to the treatment. Review of the ongoing treatment process in the context of the treatment plan. Indication of how multi-disciplinary staff members are carrying out the treatment plan. Plans for future interventions and recommendations for revision of the treatment plan. Liaison with other physicians/providers. Progress Note: Pt in good mood day. Notes has some difficulties with attention that he relates to ADHD. Would prefer to consolidate meds so that he can take everything in the morning. Denies SI or HI. Denies AVHs. Current Medications Sig/Leatha Start time Last Medication Dose Route Stop Time Status Admin Acetaminophen 650 MG Q8P PRN 06/24 1400 UNVr PO Benztropine Mesylate 1 MG Q6P PRN 06/21 2215 AC PO Bupropion HCl 150 MG DAILY 06/25 1000 UNVr PO Bupropion HCl 150 MG 0800 06/24 0800 CAN PO Bupropion HCl 75 MG 0800 06/24 0800 DC 06/24 PO 0839 Divalproex Sodium 1,250 MG DAILY 06/25 1000 UNVr PO Divalproex Sodium 500 MG BID 06/21 2200 DC 06/24 PO 0839 Gabapentin 300 MG Q6P PRN 06/21 2115 AC 06/24 PO 0730 Haloperidol 5 MG Q6P PRN 06/21 2215 AC PO Nicotine 21 MG DAILY 06/21 2101 AC 06/22 TOP 1613 Trazodone HCl 50 MG AT BEDTIME NEED.. 06/21 2114 AC 06/22 PO 2151 Laboratory Tests 06/22 06/21 06/21 0648 1820 1740 Chemistry Sodium (137 - 145 mmol/L) 139 Potassium (3.5 - 5.1 mmol/L) 4.7 Chloride (98 - 107 mmol/L) 98 Carbon Dioxide (22 - 30 mmol/L) 28 Anion Gap (5 - 16) 13 BUN (9 - 20 mg/dL) 13 Creatinine (0.7 - 1.2 mg/dL) 1.3 H Estimated GFR (>60 ml/min) > 60 BUN/Creatinine Ratio (7 - 25 %) 10.0 Glucose (65 - 99 mg/dL) 90 Calcium (8.4 - 10.2 mg/dL) 10.1 Total Bilirubin (0.2 - 1.3 mg/dL) 1.0 AST (17 - 59 U/L) 21 ALT (21 - 72 U/L) 39 Alkaline Phosphatase (< 127 U/L) 47 Total Protein (6.3 - 8.2 g/dL) 7.5 Albumin (3.5 - 5.0 g/dL) 4.7 Globulin (1.9 - 4.2 gm/dL) 2.8 Albumin/Globulin Ratio (1.1 - 2.2 %) 1.7 TSH &T3 &Free T4 Intrp (0.27 - 4.20 uIU/mL) 1.520 Hematology CBC w Diff NO MAN DIFF REQ WBC (4.8 - 10.8 /CUMM) 8.8 RBC (4.70 - 6.10 /CUMM) 5.87 Hgb (14.0 - 18.0 G/DL) 16.8 Hct (42 - 52 %) 48.9 MCV (80.0 - 94.0 FL) 83.3 MCH (27.0 - 31.0 PG) 28.6 RDW (11.5 - 14.5 %) 14.2 Plt Count (130 - 400 /CUMM) 266 MPV (7.4 - 10.4 FL) 7.8 Gran % (42.2 - 75.2 %) 66.6 Lymphocytes % (20.5 - 51.1 %) 20.4 L Monocytes % (1.7 - 9.3 %) 6.4 Eosinophils % (0 - 5 %) 6.3 H Basophils % (0.0 - 2.0 %) 0.3 Absolute Granulocytes (1.4 - 6.5 /CUMM) 5.9 Absolute Lymphocytes (1.2 - 3.4 /CUMM) 1.8 Absolute Monocytes (0.10 - 0.60 /CUMM) 0.6 Absolute Eosinophils (0.0 - 0.7 /CUMM) 0.6 Absolute Basophils (0.0 - 0.2 /CUMM) 0 PUBS MCHC (33.0 - 37.0 G/DL) 34.3 Toxicology Urine Opiates Screen (>2000 NG/ML) < 100.00 Methadone Screen (>300 NG/ML) < 40 Barbiturate Screen (>200 NG/ML) < 60 Ur Phencyclidine Scrn (>25 NG/ML) < 6.00 Amphetamines Screen (>1000 NG/ML) < 100 U Benzodiazepines Scrn (>200 NG/ML) < 85 Urine Cocaine Screen (>300 NG/ML) 718 H Urine Cannabis Screen (>50 NG/ML) 30.00 Serum Alcohol (<10 MG/DL) < 10.0 Vital Signs Date Time Temp Pulse Resp B/P Pulse O2 O2 Flow FiO2 Ox Delivery Rate 06/24 1214 79 137/73 06/24 0755 96.3 81 124/69 06/23 2000 98.0 91 138/79 06/23 1608 90 142/75 MSE Appears as stated age. Cooperative behavior, good, appropriate eye contact. Nl speech rate and prosody. No psychomotor retardation or agitation. Mood better Affect euthymic appropriate, non-liable. Linear and goal directed thought process. Denies SI or HI. Does not appear to be responding to internal stimuli. Denies AVHs, paranoia, or delusions. I/J: limited A/P: Pt with Bipolar disorder with improved mood. - Change wellbutrin 75mg daily to XL 150mg daily (IR is BID dosing) - Change depakote 500mg BID to ER 1250mg daily (given differing BA, increased dose, pt notes not sedating, wants at AM) - Otherwise continue current medication regimen
[2016-06-24 16:11] VITALS: BP 143/61
[2016-06-24 20:37] VITALS: BP 147/71
--- NOTE | 2016-06-24 20:52 | NUR ---
PT IS COOPERATIVE AND DISPLAYS NORMAL BEHAVIOR ON THE UNIT. PT TALKS ON THE PHONE OFTEN BUT DOES NOT CHANGE AFFECT. OVERALL RESPECTFUL OF STAFF AND PEERS. PT DENIES SI AT THIS TIME.
--- NOTE | 2016-06-25 06:14 | NUR ---
PATIENT SLEPT ALL NIGHT.
[2016-06-25 07:56] VITALS: BP 129/75
--- NOTE | 2016-06-25 09:54 | CP SOUTH PROGRESS NOTE PSYCH ---
Psych (Inpt) Progress Note Progress Note Include the following elements, when applicable: Involvement in the active treatment of the patient with behavioral observations of the patient and the patient's response to the treatment. Review of the ongoing treatment process in the context of the treatment plan. Indication of how multi-disciplinary staff members are carrying out the treatment plan. Plans for future interventions and recommendations for revision of the treatment plan. Liaison with other physicians/providers. Progress Note: Pt notes that doing well today. Slept "really good." Denies SI or HI. Denies AVHs. Spent most of yesterday reading in his room. Current Medications Sig/Leatha Start time Last Medication Dose Route Stop Time Status Admin Acetaminophen 650 MG Q8P PRN 06/24 1400 AC PO Benztropine Mesylate 1 MG Q6P PRN 06/21 2215 AC PO Bupropion HCl 150 MG DAILY 06/25 1000 AC 06/25 PO 0800 Bupropion HCl 75 MG 0800 06/24 0800 DC 06/24 PO 0839 Divalproex Sodium 1,250 MG DAILY 06/25 1000 AC 06/25 PO 0907 Divalproex Sodium 500 MG BID 06/21 2200 DC 06/24 PO 0839 Gabapentin 300 MG Q6P PRN 06/21 2115 AC 06/24 PO 0730 Haloperidol 5 MG Q6P PRN 06/21 2215 AC 06/24 PO 2141 Nicotine 21 MG DAILY 06/21 210 AC 06/22 TOP 1613 Trazodone HCl 50 MG AT BEDTIME NEED.. 06/21 2114 AC 06/22 PO 2151 Laboratory Tests 06/25 0605 Chemistry Sodium (137 - 145 mmol/L) 142 Potassium (3.5 - 5.1 mmol/L) 4.5 Chloride (98 - 107 mmol/L) 101 Carbon Dioxide (22 - 30 mmol/L) 30 Anion Gap (5 - 16) 11 BUN (9 - 20 mg/dL) 14 Creatinine (0.7 - 1.2 mg/dL) 1.2 Estimated GFR (>60 ml/min) > 60 BUN/Creatinine Ratio (7 - 25 %) 11.7 Toxicology Valproic Acid (50 - 120 ug/mL) 23.9 L Vital Signs Date Time Temp Pulse Resp B/P Pulse O2 O2 Flow FiO2 Ox Delivery Rate 06/25 0756 96.3 79 129/75 06/24 2036 96.9 78 147/71 06/24 1611 89 143/61 06/24 1214 79 137/73 MSE Appears as stated age. Cooperative behavior, good, appropriate eye contact. Nl speech rate and prosody. No psychomotor retardation or agitation. Mood better Affect euthymic appropriate, non-liable. Linear and goal directed thought process. Denies SI or HI. Does not appear to be responding to internal stimuli. Denies AVHs, paranoia, or delusions. I/J: limited A/P: Pt with Bipolar disorder with improved mood. - Continue wellbutrin 75mg daily to XL 150mg daily (IR is BID dosing) - Conitnue depakote 500mg BID to ER 1250mg daily; VPA level of 23.9 - Otherwise continue current medication regimen - Unclear why Cr 1.2 in young man, ?dehyrdration, recheck after hydration
[2016-06-25 11:41] VITALS: BP 126/65
--- NOTE | 2016-06-25 13:43 | NUR ---
out in community at times. some interaction with peers, less so with staff. mood is stable, full range of affect. denied thoughts of self harm when asked.
[2016-06-25 15:41] VITALS: BP 137/68
[2016-06-25 19:30] VITALS: BP 140/72
--- NOTE | 2016-06-25 19:51 | NUR ---
PT IS STABLE WITH FULL RANGE OF AFFECT, PRESENT WITHIN THE COMMUNITY, INTERACTING WITH PEERS/STAFF MEMBERS, APPROPRIATE TO THE UNIT, CALM, COOPERATIVE, COMPLIANT. ALTRNATES BETWEEN SITTING IN THE LOUNGE WATCHING TV AND READING A BOOK IN HIS ROOM. VS ARE STABLE AND DENIES ANY SI/HI TO THIS MHW.
--- NOTE | 2016-06-26 07:17 | NUR ---
PATIENT SLEPT ALL NIGHT.
[2016-06-26 08:13] VITALS: BP 143/73
--- NOTE | 2016-06-26 11:23 | CP SOUTH PROGRESS NOTE PSYCH ---
Psych (Inpt) Progress Note Progress Note Include the following elements, when applicable: Involvement in the active treatment of the patient with behavioral observations of the patient and the patient's response to the treatment. Review of the ongoing treatment process in the context of the treatment plan. Indication of how multi-disciplinary staff members are carrying out the treatment plan. Plans for future interventions and recommendations for revision of the treatment plan. Liaison with other physicians/providers. Progress Note: [I discussed this patient's progress to date, current mental status, treatment process in the context of the treatment plan, and discharge planning with staff/ team in the daily morning inpatient team meeting. I also met with the patient myself in individual session.] S: "I'm fine, I feel ready to go!" O: Current Medications Sig/Leatha Start time Last Medication Dose Route Stop Time Status Admin Acetaminophen 650 MG Q8P PRN 06/24 1400 AC PO Benztropine Mesylate 1 MG Q6P PRN 06/21 2215 AC PO Bupropion HCl 150 MG DAILY 06/25 1000 AC 06/26 PO 0835 Divalproex Sodium 1,250 MG DAILY 06/25 1000 AC 06/26 PO 0835 Gabapentin 300 MG Q6P PRN 06/21 2115 AC 06/25 PO 1041 Haloperidol 5 MG Q6P PRN 06/21 2215 AC 06/25 PO 2118 Nicotine 21 MG DAILY 06/21 210 AC 06/22 TOP 1613 Trazodone HCl 50 MG AT BEDTIME NEED.. 06/21 2114 AC 06/22 PO 2151 Laboratory Tests 06/25 0605 Chemistry Sodium (137 - 145 mmol/L) 142 Potassium (3.5 - 5.1 mmol/L) 4.5 Chloride (98 - 107 mmol/L) 101 Carbon Dioxide (22 - 30 mmol/L) 30 Anion Gap (5 - 16) 11 BUN (9 - 20 mg/dL) 14 Creatinine (0.7 - 1.2 mg/dL) 1.2 Estimated GFR (>60 ml/min) > 60 BUN/Creatinine Ratio (7 - 25 %) 11.7 Toxicology Valproic Acid (50 - 120 ug/mL) 23.9 L Vital Signs Date Time Temp Pulse Resp B/P Pulse O2 O2 Flow FiO2 Ox Delivery Rate 06/26 0813 97.0 80 143/73 06/25 1930 97.0 77 140/72 06/25 1541 81 137/68 06/25 1141 81 126/65 A: Chart, progress notes, labs, VS, and medication list were reviewed. Rpt Cr resulted within normal limits. VPA resulted subtherapeutic at 23.9. Vital signs within normal limits. No events over the weekend. Met with patient individually today, he presented alert and oriented x 3. Reported his mood as "better." Affect was full-range, non-labile. Speech was normal in rate, tone and volume. Eye contact was appropriate. He had no complaints. He reported tolerating medication changes well; Depakote 500mg BID changed to Depakote ER 1250mg QAM as patient requested wanting to simplify medication regimen to once daily. Wellbutrin 75mg QAM was changed to Wellbutrin XL 150mg daily for depression/anxiety, as the patient tolerated this well. He reported his sleep and appetite were good. He denied acute symptoms of anxiety and depression. Denied passive and active suicidal ideation, plans and intent. Denied homicidal ideation, auditory and visual hallucinations. He stated and also believed he will not harm himself or others. He reported protective factors of "my mom," "my sister," and "Ed (emergency communications officer)." He expressed motivation to follow-up with [facility] and adhere to prescribed medications. Thought process was organized, goal-directed. Thought content was appropriate. Cognition was grossly intact. Patient reported feeling safe and ready for discharge. Met together with the patient, his mother and sister, and Renata Haley LIVE AMMUNITION INSPECTOR, for a family meeting later today. The patient's treatment progress to date, medication regimen, discharge planning, and family dynamics were reviewed and discussed. Patient and his sister interacted appropriately during meeting; sister reported calling 9-1-1 d/t her the patient's level of agitation STOCK BLENDER. Patient verbalized being able to take space from his siter in the future when feeling angry towards her to prevent escalation in behavior. The patient's mother and sister had no safety concerns related to the patient's discharge this evening. Both his mother and sister, as well as the patient were in favor of discharge plan to [facility] for aftercare. Ever Schaffer ('s emergency communications officer) was notifed this evening by this continuity writer of patient's discharge. He was also in agreement of plan. P: 1. Discharge to home today into the care of his mother. 2. Discharge prescriptions were e-prescribed to [facility] in [place], [place] today. 3. F/u at [facility] for intake at 9:30AM, tomorrow, 06/27/16. 4. Abstain from all substances. 5. In the event of an emergency, call 911/go to nearest emergency department. Patient verbalized understanding of instruction.
[2016-06-26 12:11] VITALS: BP 124/69
--- NOTE | 2016-06-26 13:15 | SOCIAL WORKER PROG NOTE PSYCH ---
Social Work Progress Note Progress Note Patient to discharge the hospital today. Patients sister and mother came in for a family meeting this afternoon. Patient resides with his mother in a safe environment and reports a positive relationship with her. Patients mother and sister inquired about patients discharge plan from the hospital. Patient requested to follow up with [facility] and has intake scheduled for tomorrow at 9: 30am. Patient denies SI/HI/AH/VH at present and reports looking forward to returning home today. Patients family agreed that patient appears ready to discharge the hospital today and offerred no complaints at present.
--- NOTE | 2016-06-26 14:01 | NUR ---
out in community going to and active in group. interacts well with peers and staff. mood is stable, euthymic affect. denied thoughts of self harm when asked.
--- NOTE | 2016-06-26 15:01 | NUR ---
PT IS TENTATIVELY SCHEDULED FOR D/C TO [facility] TODAY. HE REPORTS AND DEMONSTRATES IMPROVEMENT IN HIS MOOD AND ABILITY TO FUNCTION. HE DENIES ANY THOUGHTS OF SUICIDE OR SELF HARM. PT IS GIVEN EDUCATION R/T MANAGING HIS BIPOLAR D/O AND ON SUICIDE PREVENTION. HE VERBALIZES A GOOD UNDERSTANDING OF HIS MED REGIME AND TREATMENT PLAN. PT AGREES TO FOLLOW UP WITH CARE
[2016-06-26] MEDS ORDERED: WELLBUTRIN XL150 M2 PO (16:00)
--- NOTE | 2016-06-26 16:02 | DISCHARGE SUMMARY REPORT-PSYCH ---
Visit Information Visit Dates/Diagnosis' Admission Date: 06/21/16 Discharge Date: 06/26/16 Reason for Admission: Agitated episode, cocaine intoxication. Psy Discharge Primary Diag: Unspecified Bipolar Disorder Psy Discharge Secondary Diag: R/O PTSD; Cocaine use disorder; R/O substance- induced mood disorder. Hospital Course Significant Lab Findings: Lab Urine Cocaine Screen 718 NG/ML H 06/21/16 1820 Valproic Acid 23.9 ug/mL L 06/25/16 0605 06/19/16 EKG: Sinus rhythm with rate of 87. Inferior Q waves, probably normal variation (insignificant change). IA: 176; QRSD: 102; QT: 336; QTc: 404; P: 45; QRS: 65; T: 16. EKG confirmed by cardiology. Course Complications: None. Consultations: The patient was seen for admission history and physical by match marker Dr. Britton Campbell. Please see his note for additional information. Allergies: Coded Allergies: No Known Allergies (06/19/16) Hospital Course/TX Response: The patient was monitored on the unit for safety, mood, suicidal and homicidal ideation, and cocaine withdrawal. He participated in multimodal treatments on the unit. Depakote 500mg twice daily was started for mood stabilization and later changed to Depakote ER 1,250mg every morning as the patient requested once a day dosing. Wellbutrin 75mg every morning was additionally started for depression. Patient tolerated Wellbutrin well and was switched to Wellbutrin XL 150mg every morning, again for once a day dosing. He was not noted to exhibit increased anxiety or agitation on this medication. Patient reported tolerating all medications well and denied untoward medication effects. During the hospital course, the patient's mood and affect improved. He consistently denied suicidal and homicidal ideation. Meetings were held separately with his Glass Blower Helper, Odin Schaffer, and then with his mother and sister and primary treatment team. During meeting with the patient and his structural engineering drafting officer, Odin Schaffer, Odin noted that the patient's family shows poor boundaries and frequently enables the patient's behaviors. Odin shared that Peter is a good person and would benefit from consistent outpatient treatment. He also expressed no safety concerns regarding the patient's discharge with outpatient psychiatric follow-up. During family meeting with the patient, his mother and sister, the patient's mother and sister expressed that his behaviors leading up to this hospitalization were isolated, despite his prior legal and violence histories. The patient and his sister interacted appropriately during family meeting; his sister appeared supportive. Both his mother, sister and him were in favor of aftercare plan to intensive outpatient psychiatry. Neither the patient's sister or mother expressed any safety concerns regarding patient's discharge or discharge plan. On the date of discharge, 06/26/16, the patient presented alert and oriented x 3. Reported his mood as "better." Affect was full-range, non-labile. Speech was normal in rate, tone and volume. Eye contact was appropriate. He had no complaints. He reported tolerating medication changes well; Depakote 500mg BID changed to Depakote ER 1250mg QAM as patient requested wanting to simplify medication regimen to once daily. Wellbutrin 75mg QAM was changed to Wellbutrin XL 150mg daily for depression, as the patient tolerated this well. He reported his sleep and appetite were good. He denied acute symptoms of anxiety and depression. Denied passive and active suicidal ideation, plans and intent. Denied homicidal ideation, auditory and visual hallucinations. He stated and also believed he will not harm himself or others. He reported protective factors of "my mom," "my sister," and "Ed (activities officer)." He expressed motivation to follow-up with [facility] and adhere to prescribed medications. Thought process was organized, goal-directed. Thought content was appropriate. Cognition was grossly intact. There was no evidence of hilda, delusions or paranoia. Patient reported feeling safe and ready for discharge. Discharge HBIPS - Tobacco Use Treatment Offered Post DC Medications Offered: Refused Tob Medication Tx Post DC Tobacco Treatment Plan: Refused Tobcco Tx Pgm - EtOH/Drug Use D/O Treatment Offered Post DC Medications Offered: Med Not Indicated for D/O Post DC EtOH/SubAbuse TX Plan: He SubAbuse/Dual IOP Program Appt Date: 06/27/16 Program Appt Time: 0930 Metabolic Screening - Screen if on a Neuroleptic Medication - Metabolic screening should include: - Blood Pressure, BMI, Glucose or Hgb A1c, & a - Lipid profile from within the past 365 days. Metabolic Screening ([X]) Not Applicable, patient not on a neuroleptic. OR () Patient on a neuroleptic(s) . Enter below results for Glucose or Hemoglobin A1C, and lipid panel if obtained during the last 365 days. BMI: 29.400 Blood Pressure: 124/69 Laboratory Results (If applicable): Discharge Instructions General Discharge Information Discharge Medications: Discharge Medications- (Dose, route, freq, indication): START taking these NEW Home Medications: Divalproex Sodium Dose: ORAL, DAILY @8 AM for Qty: 14 Sent to (Depakote ER) 250 MG 250 Milligram mood stability Refills: 0 Pharm 1 TAB.ER.24H Take 1 tablet (250mg) by mouth every morning. Bupropion HCl Dose: ORAL, Every Morning for Qty: 14 Sent to (Wellbutrin XL) 150 1 Tablet depression Refills: 0 Pharm 1 MG TAB.ER.24H Take 1 tablet by mouth every morning. Divalproex Sodium Dose: ORAL, DAILY @8 AM for Qty: 28 Sent to (Depakote ER) 500 MG 2 Tablet mood stability Refills: 0 Pharm 1 TAB.ER.24H Take 2 tab (1,000mg) by mouth every morning. STOP taking these DISCONTINUED Home Medications: Dextroamphetamine/Amphetamine Dose: ORAL, TWICE DAILY for ADD (Dextroamp-Amphetamin 20 MG 1 Tablet Reason Stopped: Per Doctor Tab) 20 MG TABLET Decision 1: [facility] [id number], [address] [place] [address] [phone] Your Preferred Pharmacy [facility] [address] [place] [address] [phone] Multiple Neuroleptics: ([X]) Not Applicable OR Document below three failed attempts at monotherapy, or a plan to taper to monotherapy, or augmentation of Clozapine. () Patient's Diet: Regular. Patient's Activity: No restrictions. DC Disposition: To return home to mother. Recommendations: The patient was advised to please take his medications as prescribed. He was advised to abstain from all substances and to engage in NA meetings for support in sobriety. He was advised to follow-up with [facility] intake appointment. He was advised that in the event of an emergency to call 911/go to nearest emergency department. Patient verbalized understanding of all instructions. *Recommend increasing Depakote ER to a therapeutic level to maximize mood stabilizing properties. Referred To: [facility] OUTPT [facility]IATRY Service Date: 06/27/16 [address], [place] [address] Notes: IOP intake at tomorrow, 06/27/16, @ 9:30am. [address], [place] [id number] Copies To: IOP
[2016-06-26] MEDS ORDERED: DIVALPROEX SOD500 M2 PO (16:06)
[2016-06-26] MEDS ORDERED: DEPAKOTE ER250 M1 PO (16:06)
[2016-06-26] MEDS ORDERED: DEPAKOTE ER500 M1 PO (17:41)
--- NOTE | 2016-07-07 16:32 | ED PSYCHIATRIST/APRN CONSULT ---
Psychiatrist/WELCOME WAGON HOST/HOSTESS ED Consult Assessment and Plan: Psychiatrist/WELCOME WAGON HOST/HOSTESS ED Consult MY NOTE WAS MISFILED INTO 06/19/16 ACCOUNT. Assessment and Plan: Patient seen from about 3:15 PM to 3:30 PM. The patient is a 25-year-old male with apparent history of bipolar disorder and substance abuse, who has had a couple of ER visits in the last day or so. He reportedly texted to his sister expressing his goodbye to his nieces. He has had intermittent bouts of agitation. Sister slipped a medical student a note expressing concern about the patient's safety. There has also been concern as to whether the patient might pose a danger to family members. transportation maintenance worker, Liu, and I met with the patient's sister, Gertrude. She was crying during our interview. She reported that the patient has bipolar disorder and was in [facility] and has been out for 3 years. She reports that the patient's moods have declined in the past year and he has been very depressed. Girlfriend and patient broke up, as girlfriend reportedly cheated on the patient. Patient reportedly has been verbally abusive towards family members. On Sunday, he reportedly texted Gertrude, saying that sister should tell his nieces that he loves them. Sister believes that patient is delusional, thinking that he is getting back together with his girlfriend. He told his sister that he hears voices, although he denies this upon my interview with him. Sister reports he had an outburst on Sunday night. He apparently broke his cell phone and pawned some tools to get money to replace or repair his cell phone. She indicates patient has a history of violence while incarcerated, breaking jaws. She believes he has used steroids in the past and has used crack cocaine. Patient reports he has just been pretty much having a lot of anxiety lately and that is why he came in today. Reports he has had anger problems a little bit but he relates them to anxiety. Reports he gets angry at whomever is unfortunately there at the time. He admits to breaking his cell phone but denies ever having being violent to people. He later confirmed, when I asked, that he has been violent to peers in long-term. Past psychiatric history: Seeing outpatient therapist, Randy, for 3 weeks. Patient has been seeing a prescriber, Mendy Norris APRN. No inpatient treatment history. No suicide attempts. Substance abuse history: Patient reports he chews tobacco multiple times a day. Rare alcohol use, about one time every other month. Reports using drugs "once in a blue," including ecstasy, cocaine, OxyContin and marijuana. Of note, urine drug screen from 06/19 was positive for cocaine and marijuana. Medications: None. Adderall the past. Past Depakote, Wellbutrin, Zoloft and Seroquel. Allergies: No known allergies. Past medical history: Cellulitis. Family psychiatric and substance abuse history: Patient reports everyone on mother's side has mental illness, including mother, maternal grandmother and sister, who reportedly have depression and anxiety. Patient reports brother has a history of heroin use but is clean. Patient had a brother who from an overdose. Father was alcoholic. Social history: Patient's father when the patient was 12 years old. Father reportedly was alcoholic and from an aneurysm. Patient lives with mother and stepfather. Patient reports he has been arrested for robberies. 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 Reports he has work to do and needs to make his vehicle payment. He is on parole. Mental status examination: The patient is a muscular white male dressed in T-shirt and jeans, noted to have multiple tattoos. He is resting on a stretcher. He is calm, polite and cooperative. There is no psychomotor agitation or retardation. Speech is normal in volume, rate and tone. Affect is calm and euthymic. He is in behavioral control. Reports he feels well. Reports he just has a little anxiety right now. Rates sad mood 3/10 and anxiety 7/10. Denies feeling hopeless, hopeless, worthless or guilty. Denies active and passive suicidal ideation. Denies homicidal ideation. Denies auditory hallucinations and states that he lied about AHs in the past. Denies visual hallucinations. Denies paranoid ideation and magical byrne. Insight and judgment are currently good but were poor in the recent past. There is no apparent thought disorder or delusions. The patient is oriented 3 except he gives the date as 06/21 or . Cognition is grossly intact. Estimate of intellectual functioning is average. Patient reports he never sleeps. Reports appetite is not that great. Reports sometimes it is good and other times it is not so great. Denies weight change. Reports he has a good amount of energy. Patient admits to having made a suicidal comment to his sister 2 days ago. IMPRESSION: Bipolar disorder. I offered the patient voluntary admission to [facility] and he refused. I recommended the followin. We contact the patient's mother and update her and get her input. 2. We contact electoral officer. 3. We contact outpatient therapist. 4. We contact DCF about patient's reported outburst in front of nieces. Apparently electoral officer said that if the patient does not seek voluntary admission to a psychiatric hospital, he will be violated. We will now be admitting the patient voluntarily to [facility]. DICTATED BY: SHAWNA CAMPOS MD DATE/TIME DICTATED:06/21/161721 FOREST PATHOLOGY TEACHER:LEON DATE/TIME TRANSCRIBED:06/21/161721 REPORT NUMBER:[id number] CONFIDENTIAL, DO NOT COPY WITHOUT APPROPRIATE AUTHORIZATION. <Electronically signed by SHAWAN CAMPOS MD> 06/21/16 1736
== END 2016-06-26 16:14 | DRG 753 ==
LOC: ENRESERVTM → ENRESERVDT → ERH 14:07 → ENPENDDIS 17:16 → ERHI 17:16 → CP SOUTH 17:16
PROVIDERS: Emergency Medicine; ADMIT Psychiatry & Neurology Psychiatry
DX: F31.9 Bipolar disorder, unspecified (principal); F14.10 Cocaine abuse, uncomplicated
CPT/HCPCS: 36415; 80307; 82436; 93005; 93010; G0463; G0480; J0515; J1630; Q2036